=== PATIENT | male | born 1970 | race Caucasian/White ===

== ENCOUNTER 2018-09-27 08:11 | Day surgery (SDC) | payer BC, SELFPAY ==
--- NOTE | 2018-09-27 06:42 | W.PM.HP.N ---
Date of service: 09/27/18 Time of Service: 09:22 Assessment and Plan (1) Family history of colon cancer: Current visit: No Status: Acute (2) Encounter for screening colonoscopy: Current visit: No Status: Acute A\\ Colonoscopy under sedation Risks, benefits and complications have been reviewed. Complications include but are not limited to bleeding, pain, perforation, missed small lesion/polyp, sore throat, aspiration and adverse reaction to the medications. Questions were entertained and answered to their satisfaction and they wished to proceed. No guarantees were given or implied. History of Present Illness Chief Complaint: Colon Cancer screening and family history Narrative: 48 y/o male with history of HTN, hiatal hernia and asthma presents for colonoscopy screening pre-op. His last screening was in 2006, which was unremarkable. He has a family history of colon cancer in his maternal grandmother. He denies any changes in bowel habits including bloody or black tarry stools, abdominal pain, diarrhea or constipation. He describes occasional indigestion/heartburn which resolves on its own. He denies constitutional symptoms. Denies use of marijuana or any other recreational or illegal drugs. He denies chest pain, palpitations, dyspnea or dyspnea with exertion. He recently has been increasing his physical activity by weight lifting. He reports previous adverse reactions with anesthesia to include violent/aggressive behaviors while recovering from the anesthetic. His most recent procedure was performed in 2017, which he reports he did not have any abnormal behaviors while in recovery, however he was unsure of which anesthetic was used. Review of Systems Constitutional Denies fever(s) Cardiovascular Denies chest pain at rest, Denies chest pain with activity, Denies rapid heart rate, Denies irregular heart rhythm, Denies palpitations, Denies dyspnea and Denies dyspnea on exertion Respiratory Denies cough, Denies dyspnea and Denies dyspnea on exertion Endocrine Denies palpitations [facility] Medical History HTN (hypertension) (Chronic) Hiatal hernia (Chronic) Asthma Reflux Surgical History Colonoscopy - MAC Reattachment of Thumb Family History Other Heart disease Social History Smoking and Tabacco status: Never alcohol intake: current alcohol intake frequency: 0-2 drinks per day Alcohol type: beer substance use type: does not use Meds Home Medications Medication Instructions Recorded Confirmed Type ginseng 4 cap PO DAILY 04/02/17 09/27/18 History Blood Pressure Health 1 tab PO .LUNCH 06/01/17 09/27/18 History Blood Pressure Health 2 tab PO QAM 06/01/17 09/27/18 History omeprazole 20 mg PO DAILY 06/01/17 09/27/18 History ibuprofen 800 mg PO TID #30 tab 06/03/17 09/27/18 Rx bisacodyl 5 mg tablet,delayed 5 mg PO ONCE #4 tab 08/23/18 09/27/18 Rx release polyethylene glycol 3350 17 255 g PO ONCE #255 gm 08/23/18 09/27/18 Rx gram/dose oral powder Allergies Allergy/AdvReac Type Severity Reaction Status Date / Time codeine Allergy Severe vioilet Verified 07/22/18 07:18 and hallucinations anesthetics Allergy Unknown Uncoded 07/22/18 07:18 Exam Resp Effort & Inspection: normal respiratory effort Auscultation: clear to auscultation bilaterally Cardio Rate: regular rate Rhythm: regular rhythm Heart Sounds: no gallops, no murmurs and no rubs
--- NOTE | 2018-09-27 06:45 | W.COLOREPORT ---
Date of service: 09/27/18 Time of Service: 09:32 Colonoscopy Report Date of procedure: 09/27/18 Pre-op diagnosis general: Family history and screening Post-op diagnosis procedure note: other (Transverse polyp) Procedure: Colonoscopy with polypectomy by cold forceps Surgeon: Serenity Gurber Anesthesia proc note operative: MAC (Melo Griffin, [employer] CUTTER/ ASA 2) Estimated blood loss (mL): 3 Pathology: other (Transverse polyp) Complications: None Disposition: same day Indications: Mr. Pool is a pleasant 48-year-old male who was seen in the office for a colonoscopy. He has a family history. His last colonoscopy was in 2006 and was normal. Risks, benefits and complications have been reviewed. Complications include but are not limited to bleeding, pain, perforation, missed small lesion/polyp, sore throat, aspiration and adverse reaction to the medications. Questions were entertained and answered to their satisfaction and they wished to proceed. No guarantees were given or implied. Prep: Miralax/Dulcolax Procedure Start Time: :32 Procedure End Time: :58 Retraction Time: 16 minutes Findings: Small polyp in the transverse colon Procedure Description: After informed consent was obtained the patient was taken to the procedure room and placed in a left decubitous position. Monitors were applied and a time out was done. The patients name, date of , procedure, allergies to medications and metal in their body was reviewed. The patient was then sedated. Once sedated and comfortable a rectal exam was done. External exam was normal. Internal exam revealed a normal sphincter tone and no palpable masses. The prostate felt smooth. The scope was then introduced and retro-flexed. No internal hemorrhoids were identified. The scope was then advanced to the cecum without difficulty. The TI and appendiceal orifice were identified. The prep was adequate. The scope was then slowly retracted over 16 minutes back into the rectum. Polyps were removed in the transverse colon. The scope was removed and the patient was woken up and taken back to Same day surgery in stable condition. The patient tolerated the procedure well and there were no immediate complications. Follow up: The patient should follow up depending on the final pathology.
--- NOTE | 2018-09-27 06:46 | W.PM.DSUDISC ---
Discharge Plan Disposition Patient Disposition: HOME Condition: Good Discharge Details Reason For Visit: Colon Cancer screening/family history Attending Provider: Serenity Gruber Primary Care Provider: Boo Resendez Home Meds and New Rx's Prescriptions: Continued ginseng 100 MG capsule 4 cap PO DAILY RF: 0 omeprazole 20 MG capsule,delayed release(DR/EC) 20 mg PO DAILY RF: 0 Blood Pressure Health 2 tab PO QAM RF: 0 Blood Pressure Health 1 tab PO .LUNCH RF: 0 ibuprofen 800 MG tablet 800 mg PO TID Qty: 30 RF: 0 Discontinued bisacodyl [Dulcolax (bisacodyl)] 5 mg tablet,delayed release (DR/EC) 5 mg PO ONCE Qty: 4 RF: 0 polyethylene glycol 3350 17 gram/dose powder 255 g PO ONCE Qty: 255 RF: 0 Discharge Instructions Instructions: Colonoscopy (DC), Colorectal Polyps (DC) Additional Instructions: Findings: small polyp Follow up: depends on final pathology Please call if you develop: fevers >101.5 Nausea or Vomiting Abdominal pain that is not transient DAY SURGERY UNIT POST COLONOSCOPY INSTRUCTIONS 1. Because there will be medication in your system for the next 24 hours, you may feel a little sleepy. Your coordination will be affected. Therefore: a. Do not drive or operate dangerous equipment for 24 hours. b. Do not drink alcohol beverages for 24 hours (not even beer). c. Plan to go home and rest for the day. 2. Generally there are no restrictions on your activity after a day or so has gone by, but you may feel a bit fatigued for a few days. 3 After you arrive home you may have a light meal and return to a normal diet as you can tolerate it without feeling sick to your stomach. 4. After surgery, you may feel pain or discomfort. This should be only transient, but if it persists please contact your doctor. 5. If there are any questions regarding the findings of your procedure, please feel free to contact your doctor. 6. If you are unable to contact your doctor with a problem, contact the hospital at [phone]. 7. Continue all your regular medications unless directed otherwise. I understand the above instructions and have no questions. Signature of Patient or Responsible Adult Escort Date/Time Name of Responsible Adult Escort Signature of Nurse Date/Time Activity:: Activity as Tolerated Diet:: As Tolerated Discharge Orders Discharge Orders: Discharge Order (Routine); Ordered 09/27/18 Ordered By: Serenity Gruber DS: Diagnosis Discharge Diagnosis (1) Family history of colon cancer: Status: Acute (2) Encounter for screening colonoscopy: Status: Acute (3) S/P colonoscopy: Status: Acute (4) Colorectal polyp detected on colonoscopy: Status: Acute
[2018-09-27 08:24] VITALS: BP 121/86; PULSE 56; RESP 16; TEMP 36.9; O2SAT 96
[2018-09-27] MEDS: Lactated Ringers 1,000 ML 80 ML IV (08:58)
--- NOTE | 2018-09-27 09:49 | BOWEL_PTH ---
PATIENT: Yanick Pool LOC: [facility] U#:[id number] AGE/SX: 48/M ROOM: RE09/27/[address]: Serenity Gruber MD : [id number] BED: DIS: 09/27/2018 SPEC #: [id number] RECD: 09/27/18 12:45 STATUS: ROMY RE #: [id number] RAJENDRA: 09/27/18 09:[address]: Serenity Gruber DEPT: Surgical Specimen RECD BY: Corry Hammer ENTERED: 09/27/18 12:46 SP TYPE: Bowel OTHR DR: Boo Resendez Tissues: 1 - BIOPSY BOWEL Procedures: GROSS AND MICRO LEVEL 4 Comments: [id number]
[2018-09-27 10:35] VITALS: BP 115/84; PULSE 50; RESP 16; TEMP 36.5; O2SAT 99
== END 2018-09-27 10:50 | disposition home or self-care (01) ==
LOC: SUR 08:11
PROVIDERS: PCP Family Medicine; Visit Provider Surgery
PROC: 0DJD8ZZ Inspection of Lower Intestinal Tract, Via Natural or Artificial Opening Endoscopic (ICD-10-PCS; CPT 45378; principal; 2018-09-27 09:15)
DX: Z12.11 Encounter for screening for malignant neoplasm of colon (principal); K63.5 Polyp of colon; Z80.0 Family history of malignant neoplasm of digestive organs; I10 Essential (primary) hypertension; K21.9 Gastro-esophageal reflux disease without esophagitis
CPT/HCPCS: 45380; 88305; NC

== ENCOUNTER 2018-10-18 02:09 | Outpatient (CLI) | payer BC, SELFPAY ==
--- NOTE | 2018-10-25 10:27 | HOLTER_ITS ---
DATE OF DICTATION: October 25, 2018 HOLTER MONITOR REPORT Baseline rhythm sinus. Rare single PAC. No SVT or atrial fibrillation. Rare single PVC. No VT. Nocturnal heart rates 45-50 bpm, sinus bradycardia. SYMPTOMS: Chest pain noted ten times during sinus rhythm, 59-71 bpm, no ST-T wave changes. Average heart rate 65 bpm, range 49-95 bpm.
== END 2018-10-18 02:29 ==
PROVIDERS: PCP Family Medicine; Visit Provider Nurse Practitioner Family
DX: R07.89 Other chest pain (principal)
CPT/HCPCS: 93225

== ENCOUNTER 2018-10-21 08:32 | Outpatient (CLI) | payer BC, SELFPAY | END 2018-10-21 08:52 | PROVIDERS: PCP Family Medicine; Visit Provider Nurse Practitioner Family | DX: R07.89 Other chest pain (principal) | CPT/HCPCS: 93226 ==

== ENCOUNTER 2019-10-03 14:56 | Outpatient (CLI) | payer BC, SELFPAY ==
[2019-10-03 16:12] LABS: ESR 4 mm/hr (1-20)
== END 2019-10-03 15:16 ==
PROVIDERS: PCP Family Medicine; Visit Provider Otolaryngology Otolaryngology/Facial Plastic Surgery
DX: G50.1 Atypical facial pain (principal)
CPT/HCPCS: 36415; 85652

== ENCOUNTER 2020-05-09 20:50 | Outpatient (REF) | payer MEDICAID, SELFPAY ==
[2020-05-09 19:49] LABS: HCT 45.8 % (40.0-50.0); HGB 15.4 g/dL (13.5-17.5); MCH 29.7 pg (27.0-33.0); MCHC 33.6 % (32.0-36.0); MCV 88.2 fL (80-95); Platelet Count 233 10^3/uL (130-400); RBC 5.19 10^6/uL (4.36-5.78); RDW 13.2 % (11.8-14.1); RDW-SD 42.8 fL; WBC 4.48 10^3/uL (4.4-10.8)
[2020-05-09 23:02] LABS: ALT 40 U/L (16-63); AST 21 U/L (15-37); Alkaline Phosphatase 121 U/L (46-116); Anion Gap 12.4 mmol/L (3-11); BUN 13 mg/dL (7-18); Bilirubin, Total 0.6 mg/dL (0.2-1.0); CO2 22.6 mmol/L (21.0-32.0); CREATININE 1.03 mg/dL (0.70-1.30); Calcium 8.7 mg/dL (8.5-10.1); Chloride 105 mmol/L (98-107); Glucose 115 mg/dL (74-106); Sodium 140 mmol/L (136-145); Total Protein 6.6 g/dL (6.4-8.2)
[2020-05-14 14:28] LABS: IgA 175 mg/dL (85-499); Interpretation (See Note); Tissue Transglutaminase IgA <1.2 U/mL (<4.0)
== END 2020-05-09 21:10 ==
LOC: NCHCN 20:50
PROVIDERS: PCP Family Medicine; Visit Provider Nurse Practitioner Family
DX: R19.7 Diarrhea, unspecified (principal); R10.30 Lower abdominal pain, unspecified
CPT/HCPCS: 80053; 82784; 83516; 85027

== ENCOUNTER 2020-05-16 00:48 | Outpatient (CLI) | payer MEDICAID, SELFPAY ==
--- NOTE | 2020-05-16 | DI.CT_ITS ---
EXAM: CT ABDOMEN PELVIS W CLINICAL HISTORY: LOW ABD PAIN,R10.30,CHRONIC DIARRHEA,R19.7 TECHNIQUE: Imaging Protocol: Axial computed tomography images with coronal and sagittal reformatted images were created and reviewed CONTRAST MATERIAL: Intravenous: Omnipaque 350 Contrast volume:100 mL Oral: Yes COMPARISON: No exams were available for comparison FINDINGS: ABDOMEN: Lung Bases: Normal where visualized. Liver: Diffuse decreased attenuation of the liver consistent with fatty infiltration. No measurable mass. Portal, Superior Mesenteric, and Splenic Veins: Unremarkable. Gallbladder and Biliary Tract: No radiodense calculus or dilation. Pancreas: Normal density, no abnormal calcifications or inflammatory process. Spleen: Normal. Adrenals: No masses seen. Kidneys: Normal size, contour and axis. No radiodense stones or obstructive uropathy. No masses seen. Abdominal Aorta: Abdominal portion non-dilated. Bowel: No obstruction or bowel wall thickening. No evidence of appendicitis. Peritoneal Cavity: No ascites, collection or mesenteric inflammatory response. Lymph Nodes: Within normal limits. Bones: Degenerative changes. Left L5 spondylolysis but no spondylolisthesis. Soft Tissues: Small fat containing left inguinal hernia. PELVIS: Bladder: Symmetric distention, no gross wall thickening. Reproductive Organs: Unremarkable as visualized. Lymph Nodes: Within normal limits. Bones: Please see above. IMPRESSION: No acute abdominal or pelvic process. RADIATION DOSE DELIVERED: 1,047.74mGy.cm Total DLP DATA REPOSITORY: All CT scans at this facility are submitted to the National Radiology Data Registry (NRDR) Dose Index Registry (DIR) with the [employer] (A[employer]). RADIATION OPTIMIZATION: All CT scans at this facility use at least one of these dose optimization te chniques: automated exposure control; mA and/or kV adjustment per patient size (includes targeted exa ms where dose is matched to clinical indication); or iterative reconstruction.
[2020-05-16] MEDS: Omnipaque 350 MG/ML 100 ML BTL IJ (10:04)
[2020-05-16] MEDS: Normal Saline - Diluent 50 ML VIAL IV (10:05)
[2020-05-16] MEDS: Normal Saline Flush 10 ML SYR IVP (10:05)
== END 2020-05-16 01:08 ==
PROVIDERS: PCP Family Medicine; Visit Provider Nurse Practitioner Family
DX: R10.30 Lower abdominal pain, unspecified (principal); K52.89 Other specified noninfective gastroenteritis and colitis; K40.90 Unilateral inguinal hernia, without obstruction or gangrene, not specified as recurrent; M43.06 Spondylolysis, lumbar region
CPT/HCPCS: 74177; J3490

== ENCOUNTER 2020-05-16 14:21 | Outpatient (REF) | payer MEDICAID, SELFPAY ==
[2020-05-21 11:09] LABS: Misc Referral (VDH) See Comments
== END 2020-05-16 14:41 ==
LOC: NCHCN 14:21
PROVIDERS: PCP Family Medicine; Visit Provider Nurse Practitioner Family
DX: R19.7 Diarrhea, unspecified (principal); R10.30 Lower abdominal pain, unspecified

== ENCOUNTER 2021-06-13 17:55 | Outpatient (REF) | payer MEDICAID, SELFPAY ==
[2021-06-14 08:50] LABS: TSH (W/Ref FT4) 3.73 uIU/mL (0.36-3.74)
== END 2021-06-13 17:56 | disposition home or self-care (01) ==
LOC: LBN 17:55
PROVIDERS: PCP Family Medicine; Visit Provider Internal Medicine Cardiovascular Disease
DX: R00.1 Bradycardia, unspecified (principal); I10 Essential (primary) hypertension
CPT/HCPCS: 84443

== ENCOUNTER 2022-09-05 00:34 | Outpatient (CLI) | payer BC, MEDICAID, SELFPAY ==
[2022-09-05 14:07] LABS: CREATININE 0.9 mg/dL (0.70-1.30); Estimated GFR 101.49 (mL/min/1.73m2)
[2022-09-05] MEDS: Barium Sulfate 2% W/V-Berry Smoothie 450 ML BTL PO (14:18)
--- NOTE | 2022-09-05 15:00 | DI.CT_ITS ---
Exam(s) CT ABDOMEN W EXAM: CT ABDOMEN W CLINICAL HISTORY: UPPER ABD PAIN, R10.10 TECHNIQUE: COMPARISON: CT CT ABDOMEN PELVIS W from 05/16/2020 FINDINGS: Please note that this study was limited to the abdomen. The pelvis was not scanned. Uppermost images reveal no focal findings in the visualized lung bases and no pleural effusions. There is no ascites in the upper abdomen. No evidence of obvious bowel obstruction. Appendix is not included in the field of view of this abdo men only study. There are no focal hepatic lesions nor dilatation of intrahepatic ducts. No obvious gallbladder path ology. CBD is not dilated. Pancreas unremarkable. Pancreatic duct is not dilated. No pancreatic l esions evident. Spleen size is normal. No splenic lesions. Splenic and portal veins are patent. T here are no adrenal masses. Both kidneys exhibit normal size. No renal cysts nor solid renal masses . No calculi nor hydronephrosis. The abdominal aorta is not enlarged. There is no retroperitoneal- para-aortic adenopathy. Osseous: There is an unchanged mild deformity of the superior aspect of the right iliac bone which is probably healed fracture site. No compression fractures evident. No significant osseous lesions. IMPRESSION: No significant focal findings on this CT scan of the abdomen. Please note that this was an abdomen only scan. The pelvis was not scanned.
[2022-09-05] MEDS: Omnipaque 350 MG/ML 100 ML BTL IJ (15:09)
[2022-09-05] MEDS: Normal Saline - Diluent 50 ML VIAL IJ (15:10)
== END 2022-09-05 00:54 ==
PROVIDERS: PCP Family Medicine; Visit Provider Nurse Practitioner Family
DX: R10.10 Upper abdominal pain, unspecified (principal)
CPT/HCPCS: 74160; 82565; J3490

== ENCOUNTER 2022-09-05 18:09 | Outpatient (CLI) | payer BC, MEDICAID, SELFPAY ==
[2022-09-05 15:29] LABS: Abs Immature Grans 0.01 10^3/uL (0.0-0.06); Absolute Basophil Count 0.06 10^3/uL (0.0-0.2); Absolute Eosinophil Count 0.37 10^3/uL (0.0-0.7); Absolute Lymphocyte Count 2.23 10^3/uL (1.2-3.4); Absolute Neutrophil Count 2.32 10^3/uL (1.2-6.7); Basophils % 1.1; Eosinophils % 6.7; HCT 44.7 % (40.0-50.0); HGB 14.9 g/dL (13.5-17.5); Immature Grans % 0.2; Lymphocytes % 40.6; MCH 29.8 pg (27.0-33.0); MCHC 33.3 % (32.0-36.0); MCV 89 fL (80-95); MPV 10.4 fL (8.0-11.0); Monocytes % 9.1; Neutrophils % 42.3; Platelet Count 218 10^3/uL (130-400); RDW 12.8 % (11.8-14.1); RDW-SD 42.3 fL; WBC 5.49 10^3/uL (4.4-10.8)
== END 2022-09-05 18:10 | disposition home or self-care (01) ==
LOC: LBO 18:09
PROVIDERS: PCP Family Medicine; Visit Provider Nurse Practitioner Family
DX: Z00.01 Encounter for general adult medical examination with abnormal findings (principal)
CPT/HCPCS: 36415; 85025

== ENCOUNTER 2022-09-19 18:51 | Outpatient (REF) | payer BC, MEDICAID, SELFPAY ==
[2022-09-22 10:36] LABS: PSA, Screening 0.3 ng/mL (<=3.5)
== END 2022-09-19 18:52 | disposition home or self-care (01) ==
LOC: NCHCN 18:51
PROVIDERS: PCP Family Medicine; Visit Provider Nurse Practitioner Family
DX: Z12.5 Encounter for screening for malignant neoplasm of prostate (principal)
CPT/HCPCS: 84153